=== PATIENT | female | born 1950 | race Caucasian/White ===

== ENCOUNTER 2022-05-17 10:04 | Emergency (ER) | payer OTHER ==
[~2022-05-17 10:04] MED LIST: ATORVASTATIN CA20 MG PO; BREO ELLIPTA 21 EACH INH; CLOPIDOGREL75 MG PO; KLONOPIN TAB 00.5 MG PO; METOPROLOL SUCC50 MG PO; NITROSTAT0.4 MG SL; RANITIDINE HCL150 MG PO; RANOLAZINE ER500 MG PO; SIMVASTATIN20 MG PO; TRIAMCINOLONE A80 GM TP
[2022-05-17 11:01] LABS: HEMOGLOBIN 11.1 gm/dl (12.3-15.3); RED BLOOD COUNT 3.67 M/UL (4.00-5.10); WHITE BLOOD COUNT 6.8 K/UL (4.5-11.0)
[2022-05-17 11:29] LABS: BUN/CREATININE RATIO 16 (0-10)
[2022-05-17] MEDS ORDERED: OMNICEF 300 MG300 MG PO (13:55)
[2022-05-17] MEDS ORDERED: HYDROCODON-ACE1 EAC4 PO (13:55)
== END 2022-05-17 14:39 | disposition home or self-care (01) ==
LOC: ER1 10:04
PROVIDERS: Emergency Medicine
DX: S22.089A Unspecified fracture of T11-T12 vertebra, initial encounter for closed fracture (principal); E87.6 Hypokalemia; I25.10 Atherosclerotic heart disease of native coronary artery without angina pectoris; I10 Essential (primary) hypertension; F17.200 Nicotine dependence, unspecified, uncomplicated; V49.50XA Passenger injured in collision with unspecified motor vehicles in traffic accident, initial encounter; Y92.410 Unspecified street and highway as the place of occurrence of the external cause
CPT/HCPCS: 71260; 80053; 81001; 82550; 82553; 84484; 85025; 87086; 93005; 99284; Q9967

== ENCOUNTER → 2022-06-07 | Outpatient (CLI) | payer MEDICARE ==
[~2022-06-07] MED LIST changes: +HYDROCODON-ACE1 EAC4 PO; +OMNICEF 300 MG300 MG PO
== END ==
LOC: KOH-I 08:52
DX: M47.22 Other spondylosis with radiculopathy, cervical region (principal); S22.089A Unspecified fracture of T11-T12 vertebra, initial encounter for closed fracture; M48.02 Spinal stenosis, cervical region
CPT/HCPCS: 72141; 72148